=== PATIENT | male | born 1955 | race Caucasian/White ===

== ENCOUNTER 2017-09-22 | Observation (INO) | payer OTHER ==
[~2017-09-22] VITALS: Ht 188 cm; Wt 106.2 kg
[~2017-09-22] MED LIST: ASPI325 PO; ASPI81EC PO; ATEN100 PO; ATEN50 PO; ATOR10 PO; Aspirin EC81 MG PO; CHOLESTEROL MED; CRUTCH3 USE; CYCL10 PO; FURO40 PO; HYDACE5 PO; HYDCHL25 PO; LOSA25 PO; METH10 PO; Metoprolol Tart25 MG PO; NAPR500 PO; NAPR550 PO; NITR.4SL SL; OXYACE5T PO; OXYC10TA19 PO; OXYC1TAB11 PO; PRED20 PO; Percocet 5-3251 EACH PO; Prinivil5 MG PO; SENEXON-S TABL1 EACH PO; Silvadene20 GM TOP; TRAM50 PO; [UNRECOGNIZED DRUG - REMARK]
[2017-09-22 01:11] LABS: BASOPHILS ABSOLUTE AUTO 0.02 K/mm3 (0.00-0.23); BASOPHILS PERCENT AUTO 0 % (0-2); EOSINOPHILS ABSOLUTE AUTO 0.01 K/mm3 (0.00-0.68); EOSINOPHILS PERCENT AUTO 0 % (0-6); Hematocrit 38.2 % (37.0-53.0); Hemoglobin 13.2 g/dL (13.5-17.5); IMMATURE GRAN ABSOLUTE AUTO 0.02 K/mm3 (0.00-0.10); IMMATURE GRAN PERCENT AUTO 0 % (0-1); LYMPHOCYTES ABSOLUTE AUTO 1.71 K/mm3 (0.84-5.20); LYMPHOCYTES PERCENT AUTO 19 % (21-46); MONOCYTES ABSOLUTE AUTO 0.53 K/mm3 (0.16-1.47); MONOCYTES PERCENT AUTO 6 % (4-13); Mean Corpuscular HGB 31.6 pg (26.0-34.0); Mean Corpuscular HGB Conc 34.6 g/dL (31.5-36.5); Mean Corpuscular Volume 91 fL (80-100); Mean Platelet Volume 10.2 fL (9.1-12.4); NEUTROPHILS ABSOLUTE AUTO 6.76 K/mm3 (1.96-9.15); NEUTROPHILS PERCENT AUTO 75 % (41-73); Platelet Count 121 K/mm3 (150-400); RDW Coefficient Variation 11.8 % (11.7-14.2); RDW Standard Deviation 39.8 fL (35.1-46.3); Red Blood Cell Count 4.18 M/mm3 (4.30-5.90); White Blood Cell Count 9.05 K/mm3 (4.00-11.30)
[2017-09-22 01:30] LABS: Alanine Aminotransfer (ALT/SGP 49 U/L (12-78); Albumin, Blood 3.5 g/dL (3.4-5.0); Albumin/Globulin Ratio 0.9 (0.8-1.8); Alk Phos 121 U/L (50-136); Anion Gap 8 mmol/L (6-16); Aspartate Aminotrans (AST/SGOT 36 U/L (12-37); Bilirubin, Total 0.5 mg/dL (0.1-1.0); Blood Urea Nitrogen 18 mg/dL (8-24); Bun/Creatinine Ratio 28.7 (12.0-20.0); CO2, Blood 23 mmol/L (21-32); Calcium, Blood 8.2 mg/dL (8.5-10.1); Chloride, Blood 111 mmol/L (98-108); Creatinine, Blood 0.63 mg/dL (0.60-1.20); Globulin, Blood 3.9 g/dL (2.2-4.0); Glomerular Filtration Rate >60 (60-); Glucose, Blood 126 mg/dL (70-99); Potassium, Blood 3.7 mmol/L (3.5-5.5); Sodium, Blood 142 mmol/L (136-145); Total Protein, Blood 7.4 g/dL (6.4-8.2); Troponin I <0.015 ng/mL (0.000-0.040)
[2017-09-22 10:47] LABS: Troponin I <0.015 ng/mL (0.000-0.040)
[2017-09-22 10:48] LABS: CPK Creatine Kinase 65 U/L (39-308)
[2017-09-22 17:06] LABS: Hematocrit 40.4 % (37.0-53.0); Hemoglobin 14.1 g/dL (13.5-17.5); Mean Corpuscular HGB 31.9 pg (26.0-34.0); Mean Corpuscular HGB Conc 34.9 g/dL (31.5-36.5); Mean Corpuscular Volume 91 fL (80-100); Mean Platelet Volume 10.5 fL (9.1-12.4); Platelet Count 105 K/mm3 (150-400); RDW Coefficient Variation 11.8 % (11.7-14.2); RDW Standard Deviation 39.8 fL (35.1-46.3); Red Blood Cell Count 4.42 M/mm3 (4.30-5.90); White Blood Cell Count 7.89 K/mm3 (4.00-11.30)
[2017-09-22 18:03] LABS: Alanine Aminotransfer (ALT/SGP 48 U/L (12-78); Albumin, Blood 3.5 g/dL (3.4-5.0); Albumin/Globulin Ratio 0.9 (0.8-1.8); Alk Phos 127 U/L (50-136); Anion Gap 9 mmol/L (6-16); Aspartate Aminotrans (AST/SGOT 39 U/L (12-37); Bilirubin, Total 0.5 mg/dL (0.1-1.0); Blood Urea Nitrogen 19 mg/dL (8-24); Bun/Creatinine Ratio 25.8 (12.0-20.0); CO2, Blood 26 mmol/L (21-32); Calcium, Blood 8.5 mg/dL (8.5-10.1); Chloride, Blood 107 mmol/L (98-108); Creatinine, Blood 0.74 mg/dL (0.60-1.20); Globulin, Blood 3.7 g/dL (2.2-4.0); Glomerular Filtration Rate >60 (60-); Glucose, Blood 113 mg/dL (70-99); Potassium, Blood 3.5 mmol/L (3.5-5.5); Sodium, Blood 142 mmol/L (136-145); Total Protein, Blood 7.2 g/dL (6.4-8.2)
[2017-09-22 18:31] LABS: CPK Creatine Kinase 64 U/L (39-308); Troponin I <0.015 ng/mL (0.000-0.040)
[2017-09-23] MEDS ORDERED: ATOR40TA PO (15:56)
[2017-09-23] MEDS ORDERED: ACET325 PO (15:59)
[2017-09-23] MEDS ORDERED: LIDOCAINE1 EACH TOP (16:01)
== END 2017-09-23 16:29 | disposition home or self-care (01) ==
LOC: ER → MEDS 00:01 → ENPENDDIS 09-23 15:30 → MEDS 09-23 16:29
PROVIDERS: Emergency Medicine; Internal Medicine
DX: R07.89 Other chest pain (principal); I10 Essential (primary) hypertension; I25.10 Atherosclerotic heart disease of native coronary artery without angina pectoris; F11.20 Opioid dependence, uncomplicated; Z95.1 Presence of aortocoronary bypass graft; Z88.8 Allergy status to other drugs, medicaments and biological substances; Z79.82 Long term (current) use of aspirin; Z79.899 Other long term (current) drug therapy
CPT/HCPCS: 36415; 71046; 78452; 80053; 82550; 83880; 84484; 85025; 85027; 93005; 93010; 93017; 96372; 96374; 96375; 96376; 99285-25; A9500; G0378; J0706; J1650; J1885; J2405; J2550; J2785; J3010

== ENCOUNTER 2018-03-12 08:38 | Day surgery (SDC) | payer OTHER ==
[~2018-03-12 08:38] MED LIST changes: +ACET325 PO; +ATOR40TA PO; +LIDOCAINE1 EACH TOP
== END 2018-03-12 22:38 | disposition home or self-care (01) ==
LOC: US 08:38
DX: B18.2 Chronic viral hepatitis C (principal)
CPT/HCPCS: 47000; 76942; 88307; 88313

== ENCOUNTER 2018-08-22 06:40 | Day surgery (SDC) | payer OTHER ==
[~2018-08-22] VITALS: Ht 188 cm; Wt 113.6 kg
[~2018-08-22 06:40] MED LIST changes: +AMLO10 PO; +ATOR80 PO
--- NOTE | 2018-08-22 07:23 | NUR ---
08/22/18 0723 Sofi Lee V PT RESTING IN BED, SIDE RAILS IN PLACE, CALL LIGHT WITHIN RAECH, VSS. PT TEACHING COMPLETED. PT DENIES DISCOMFORT AND QUESTIONS, REPORTS FOR PAIN IN R HAND.
--- NOTE | 2018-08-22 08:35 | NUR ---
08/22/18 0835 Sofi Lee V REPORT GIVEN TO [facility]. [facility].
== END 2018-08-22 09:24 | disposition home or self-care (01) ==
LOC: ORSCSDS 06:40
PROVIDERS: Orthopaedic Surgery
PROC: 01N50ZZ Release Median Nerve, Open Approach (ICD-10-PCS; principal; 2018-08-22 08:00)
DX: G56.01 Carpal tunnel syndrome, right upper limb (principal); I10 Essential (primary) hypertension; I25.10 Atherosclerotic heart disease of native coronary artery without angina pectoris; I25.2 Old myocardial infarction; G47.33 Obstructive sleep apnea (adult) (pediatric); E66.9 Obesity, unspecified; Z68.32 Body mass index [BMI] 32.0-32.9, adult; Z87.891 Personal history of nicotine dependence; Z79.82 Long term (current) use of aspirin; Z79.899 Other long term (current) drug therapy
CPT/HCPCS: J2250; J2704; J3010; J7120

== ENCOUNTER 2019-01-07 06:31 | Day surgery (SDC) | payer OTHER ==
[~2019-01-07] VITALS: Ht 188 cm; Wt 114.3 kg
[~2019-01-07 06:31] MED LIST changes: +ASPI325EC PO; +Amlodipine Besy10 MG PO; +LOSARTAN POTAS100 MG PO; +Lipitor80 MG PO; +Lopressor 25 mg25 MG PO
== END 2019-01-07 08:45 | disposition home or self-care (01) ==
LOC: ORSCSDS 06:31
PROVIDERS: Orthopaedic Surgery
PROC: 01N50ZZ Release Median Nerve, Open Approach (ICD-10-PCS; principal; 2019-01-07 07:30)
DX: G56.02 Carpal tunnel syndrome, left upper limb (principal); I10 Essential (primary) hypertension; I25.2 Old myocardial infarction; B19.20 Unspecified viral hepatitis C without hepatic coma; E66.9 Obesity, unspecified; Z68.32 Body mass index [BMI] 32.0-32.9, adult; Z79.82 Long term (current) use of aspirin; Z79.899 Other long term (current) drug therapy
CPT/HCPCS: J1100; J2250; J2370; J2405; J2704; J3010; J7120

== ENCOUNTER 2019-04-14 07:15 | Day surgery (SDC) | payer OTHER ==
[~2019-04-14] VITALS: Ht 188 cm; Wt 109.0 kg
[~2019-04-14 07:15] MED LIST changes: +CHLO25B PO; +CLOP75 PO; +POTA10T PO; +RANOLAZINE ER500 M2 PO
--- NOTE | 2019-04-14 16:57 | NUR ---
PT IV DC'D INTACT, PT CHOOSED TO DC BY AMBULATING OUT WITH DAUGHTER IN LAW. R GROIN SITE STABLE, PT AMB TO BTR OK AND DRESSED. DC INSTRUCTIONS GIVEN
== END 2019-04-14 16:57 | disposition home or self-care (01) ==
LOC: MHTC 07:15
PROC: B202YZZ Plain Radiography of Single Coronary Artery Bypass Graft using Other Contrast (ICD-10-PCS; principal; 2019-04-14)
PROC: B205YZZ Plain Radiography of Left Heart using Other Contrast (ICD-10-PCS; principal; 2019-04-14)
PROC: B201YZZ Plain Radiography of Multiple Coronary Arteries using Other Contrast (ICD-10-PCS; principal; 2019-04-14)
PROC: 4A023N7 Measurement of Cardiac Sampling and Pressure, Left Heart, Percutaneous Approach (ICD-10-PCS; principal; 2019-04-14)
DX: I25.719 Atherosclerosis of autologous vein coronary artery bypass graft(s) with unspecified angina pectoris (principal); I25.119 Atherosclerotic heart disease of native coronary artery with unspecified angina pectoris; E78.5 Hyperlipidemia, unspecified; I10 Essential (primary) hypertension; I25.2 Old myocardial infarction; E66.3 Overweight; Z88.5 Allergy status to narcotic agent; Z68.32 Body mass index [BMI] 32.0-32.9, adult; Z86.19 Personal history of other infectious and parasitic diseases; Z79.82 Long term (current) use of aspirin; Z79.899 Other long term (current) drug therapy
CPT/HCPCS: 86850; 86900; 86901; 93459; 99152; 99153; C1769; C1894; J1644; J2250; J3010; J7030; Q9967

== ENCOUNTER 2019-06-12 20:30 | Observation (INO) | payer OTHER ==
[~2019-06-12] VITALS: Ht 190.5 cm; Wt 107.3 kg
[2019-06-12 21:01] LABS: BASOPHILS ABSOLUTE AUTO 0.05 K/mm3 (0.00-0.23); BASOPHILS PERCENT AUTO 0 % (0-2); EOSINOPHILS ABSOLUTE AUTO 0.12 K/mm3 (0.00-0.68); EOSINOPHILS PERCENT AUTO 1 % (0-6); Hematocrit 41.2 % (37.0-53.0); Hemoglobin 14.3 g/dL (13.5-17.5); IMMATURE GRAN ABSOLUTE AUTO 0.06 K/mm3 (0.00-0.10); IMMATURE GRAN PERCENT AUTO 1 % (0-1); LYMPHOCYTES ABSOLUTE AUTO 4.04 K/mm3 (0.84-5.20); LYMPHOCYTES PERCENT AUTO 34 % (21-46); MONOCYTES ABSOLUTE AUTO 0.86 K/mm3 (0.16-1.47); MONOCYTES PERCENT AUTO 7 % (4-13); Mean Corpuscular HGB 31.4 pg (26.0-34.0); Mean Corpuscular HGB Conc 34.7 g/dL (31.5-36.5); Mean Corpuscular Volume 91 fL (80-100); Mean Platelet Volume 10.3 fL (9.1-12.4); NEUTROPHILS ABSOLUTE AUTO 6.87 K/mm3 (1.96-9.15); NEUTROPHILS PERCENT AUTO 57 % (41-73); Platelet Count 203 K/mm3 (150-400); RDW Coefficient Variation 11.9 % (11.7-14.2); RDW Standard Deviation 39.9 fL (35.1-46.3); Red Blood Cell Count 4.55 M/mm3 (4.30-5.90)
[2019-06-12 21:25] LABS: Alanine Aminotransfer (ALT/SGP 22 U/L (12-78); Albumin, Blood 4.2 g/dL (3.4-5.0); Alk Phos 106 U/L (50-136); Anion Gap 4 mmol/L (6-16); Aspartate Aminotrans (AST/SGOT 23 U/L (12-37); Bilirubin, Total 0.5 mg/dL (0.1-1.0); Blood Urea Nitrogen 16 mg/dL (8-24); CO2, Blood 28 mmol/L (21-32); Chloride, Blood 105 mmol/L (98-108); Creatinine, Blood 0.84 mg/dL (0.60-1.20); Globulin, Blood 4.3 g/dL (2.2-4.0); Glomerular Filtration Rate >60 (60-); Glucose, Blood 99 mg/dL (70-99); Potassium, Blood 4.3 mmol/L (3.5-5.5); Sodium, Blood 137 mmol/L (136-145); Total Protein, Blood 8.5 g/dL (6.4-8.2); Troponin I <0.015 ng/mL (0.000-0.040)
[2019-06-13 02:15] LABS: International Normalized Ratio 1.05; Prothrombin Time Results 11.2 Sec (9.7-11.5)
[2019-06-13 04:29] LABS: Hematocrit 37.9 % (37.0-53.0); Hemoglobin 13.1 g/dL (13.5-17.5); Mean Corpuscular HGB 31.3 pg (26.0-34.0); Mean Corpuscular HGB Conc 34.6 g/dL (31.5-36.5); Mean Corpuscular Volume 91 fL (80-100); Mean Platelet Volume 9.9 fL (9.1-12.4); Platelet Count 163 K/mm3 (150-400); RDW Coefficient Variation 11.9 % (11.7-14.2); RDW Standard Deviation 39.6 fL (35.1-46.3); Red Blood Cell Count 4.18 M/mm3 (4.30-5.90); White Blood Cell Count 12.94 K/mm3 (4.00-11.30)
[2019-06-13 04:53] LABS: Alanine Aminotransfer (ALT/SGP 22 U/L (12-78); Albumin, Blood 3.6 g/dL (3.4-5.0); Alk Phos 94 U/L (50-136); Anion Gap 4 mmol/L (6-16); Aspartate Aminotrans (AST/SGOT 17 U/L (12-37); Bilirubin, Total 0.5 mg/dL (0.1-1.0); Blood Urea Nitrogen 16 mg/dL (8-24); Bun/Creatinine Ratio 18.4 (12.0-20.0); CO2, Blood 28 mmol/L (21-32); Calcium, Blood 8.6 mg/dL (8.5-10.1); Chloride, Blood 106 mmol/L (98-108); Creatinine, Blood 0.87 mg/dL (0.60-1.20); Globulin, Blood 3.7 g/dL (2.2-4.0); Glomerular Filtration Rate >60 (60-); Glucose, Blood 124 mg/dL (70-99); Potassium, Blood 3.3 mmol/L (3.5-5.5); Sodium, Blood 138 mmol/L (136-145); Total Protein, Blood 7.3 g/dL (6.4-8.2)
[2019-06-13 04:54] LABS: CPK Creatine Kinase 68 U/L (39-308); Troponin I <0.015 ng/mL (0.000-0.040)
--- NOTE | 2019-06-13 05:04 | NUR ---
PCU ADMIT / SHIFT SUMMARY PT BROUGHT TO PCU-10 FROM ER BY PAOLACARLOS @ APPROX 0130. PT A&O X4, ABLE TO STAND AND INDEPENDENTLY AMBULATE FROM ER [place] TO PCU BED. PT [place]. VSS. LUNG SOUNDS DIM T/O. SPO2 > 92% ON RA. MONITOR SHOWING SB, HR 40's-50's. PT C/O / HEADACHE & /10 CHEST PRESSURE. PT MEDICATED W/ PRN IV FENTANYL PER EMAR W/ LITTLE RELIEF. PT REPORTS HAVING CHEST PRESSURE SINCE 06/12/19 AM & HAVING TAKEN 3 NITRO AT HOME W/ NO RELIEF. HEPARIN GTT INITIATED, INFUSING PER ORDERS. NS GTT INFUSING PER ORDERS. PT AWAITING CHEST CT. WILL CONTINUE TO MONITOR AND PROVIDE CARE UNTIL REPORT OFF TO DAY SHIFT RN.
--- NOTE | 2019-06-13 08:02 | NUR ---
PT LAYING IN BED WAKES, EASILY, SEEMS A BIT FLAT, BUT HE WAS UP MOST OF THE NIGHT, A/OX3, COOPERATIVE WITH CARE, FOLLOWS COMMANDS WELL, STATES HE IS DOING OK, CARDIOLOGY CONSULT WAS CALLED THIS AM, Karsten.aZna STABLE, HEP GTT INFUSING, WILL CONTINUE TO MONITOR, CALL LIGHT IN REACH.
[2019-06-13 12:45] LABS: CPK Creatine Kinase 64 U/L (39-308); Troponin I <0.015 ng/mL (0.000-0.040)
--- NOTE | 2019-06-13 15:15 | NUR ---
pt is transfering to [facility], report was given to rose marie lance, pt via via ambulance with hep gtt.
== END 2019-06-13 15:06 | disposition short-term general hospital (02) ==
LOC: ER 20:30 → PCU 20:31
PROVIDERS: Physician Assistant; ADMIT Internal Medicine
DX: I25.10 Atherosclerotic heart disease of native coronary artery without angina pectoris (principal); I10 Essential (primary) hypertension; F11.20 Opioid dependence, uncomplicated; Z95.1 Presence of aortocoronary bypass graft; Z79.82 Long term (current) use of aspirin; Z79.02 Long term (current) use of antithrombotics/antiplatelets; Z79.899 Other long term (current) drug therapy; Z88.5 Allergy status to narcotic agent
CPT/HCPCS: 36415; 71046; 71260; 80053; 82550; 84484; 85025; 85027; 85610; 85651; 85730; 90686; 93005; 93010; 96361; 96374; 96375; 99285-25; A9270-GY; G0008; G0378; J1644; J2270; J3010; J7030; Q9967

== ENCOUNTER → 2020-02-17 | Outpatient (CLI) | payer OTHER | END | disposition home or self-care (01) | LOC: PLD 12:18 → LAB SHORT 12:18 | DX: B35.1 Tinea unguium (principal) | CPT/HCPCS: 88305; 88312 ==

== ENCOUNTER 2021-09-21 21:37 | Observation (INO) | payer OTHER ==
[~2021-09-21] VITALS: Ht 188 cm; Wt 116.5 kg
[2021-09-21 22:26] LABS: BASOPHILS ABSOLUTE AUTO 0.04 K/mm3 (0.00-0.23); BASOPHILS PERCENT AUTO 0 % (0-2); EOSINOPHILS ABSOLUTE AUTO 0.04 K/mm3 (0.00-0.68); EOSINOPHILS PERCENT AUTO 0 % (0-6); Hematocrit 41.2 % (37.0-53.0); Hemoglobin 14.4 g/dL (13.5-17.5); IMMATURE GRAN ABSOLUTE AUTO 0.05 K/mm3 (0.00-0.10); IMMATURE GRAN PERCENT AUTO 0 % (0-1); LYMPHOCYTES ABSOLUTE AUTO 2.56 K/mm3 (0.84-5.20); LYMPHOCYTES PERCENT AUTO 20 % (21-46); MONOCYTES ABSOLUTE AUTO 0.74 K/mm3 (0.16-1.47); MONOCYTES PERCENT AUTO 6 % (4-13); Mean Corpuscular HGB 29.9 pg (26.0-34.0); Mean Corpuscular Volume 86 fL (80-100); Mean Platelet Volume 9.8 fL (9.1-12.4); NEUTROPHILS ABSOLUTE AUTO 9.26 K/mm3 (1.96-9.15); NEUTROPHILS PERCENT AUTO 73 % (41-73); Platelet Count 197 K/mm3 (150-400); RDW Coefficient Variation 12.1 % (11.7-14.2); RDW Standard Deviation 37.6 fL (35.1-46.3); Red Blood Cell Count 4.82 M/mm3 (4.30-5.90); White Blood Cell Count 12.69 K/mm3 (4.00-11.30)
[2021-09-21 22:39] LABS: International Normalized Ratio 1.05
[2021-09-21 22:44] LABS: Bilirubin, Total 0.4 mg/dL (0.1-1.0); Creatinine, Blood 0.78 mg/dL (0.60-1.20); Globulin, Blood 4.1 g/dL (2.2-4.0); Potassium, Blood 3.7 mmol/L (3.5-5.5); Total Protein, Blood 8.1 g/dL (6.4-8.2)
[2021-09-22 02:41] LABS: CHOL/HDL RATIO 4.4; Cholesterol 137 mg/dL (50-200); HDL Cholesterol 31 mg/dL (>39); LDL/HDL RATIO 2.1; Low Density Lipoprotein Chol 66 mg/dL (0-110); Triglycerides 199 mg/dL (30-160); Very Low Density Lipoprot Chol 39 mg/dL (6-32)
--- NOTE | 2021-09-22 04:52 | NUR ---
PT ADMITTED TO 333 FROM ER @ 0200 AM ON 09/22/21. PT AMBULATES INDEPENDENTLY FROM W/C TO BED. STEADY GAIT NOTED. REPORT RECEIVED FROM CHARGE NURSEAnne
--- NOTE | 2021-09-22 04:53 | NUR ---
A&OX4. HYPERTENSIVE & C/O C/P; NO SOB. PRN NYTRO SUB GIVEN TWICE. BP NORMALIZED AFTER 2 DOSES OF NYTRO. C/P UNRESOLVED. PRN MORPHINE IV GIVEN FOR C/P ORDERED. C/P RESOLVED. INDEPENDANT. IV TO L) FA & R) AC. VOIDS W/O DIFFICULTY. NO BM THIS SHIFT. CARDIAC DIET. TELE: NS @HR OF 56BPM. WILL CONTINUE TO MONITOR.
--- NOTE | 2021-09-22 05:07 | NUR ---
ON 09/22/2021 DR. MANJARREZ NOTIFIED OF PATIENT'S PERSISTENT C/P DESPITE 2 DOSES OF NYTRO AT 0245. FENTANYL ORDERED BY DR MANJARREZ. PT ALLERGIC TO DEMEROL. DEMEROL & FENTANYL IN SAME CLASS. DR MANJARREZ SAID TO CALL DR. POP. DR. POP ORDERED " GIVE MORPHINE 2-3MG EVERY 3 HOURS PRN FOR CHEST PAIN". ORDER ENTERED ORDERED AND MORPHINE GIVEN PER EMAR.
[2021-09-22 06:00] LABS: BASOPHILS ABSOLUTE AUTO 0.04 K/mm3 (0.00-0.23); BASOPHILS PERCENT AUTO 0 % (0-2); EOSINOPHILS ABSOLUTE AUTO 0.15 K/mm3 (0.00-0.68); EOSINOPHILS PERCENT AUTO 1 % (0-6); Hematocrit 40.1 % (37.0-53.0); Hemoglobin 13.6 g/dL (13.5-17.5); IMMATURE GRAN ABSOLUTE AUTO 0.03 K/mm3 (0.00-0.10); IMMATURE GRAN PERCENT AUTO 0 % (0-1); LYMPHOCYTES ABSOLUTE AUTO 3.72 K/mm3 (0.84-5.20); LYMPHOCYTES PERCENT AUTO 31 % (21-46); MONOCYTES ABSOLUTE AUTO 1.02 K/mm3 (0.16-1.47); MONOCYTES PERCENT AUTO 9 % (4-13); Mean Corpuscular HGB 29.4 pg (26.0-34.0); Mean Corpuscular HGB Conc 33.9 g/dL (31.5-36.5); Mean Corpuscular Volume 87 fL (80-100); Mean Platelet Volume 9.5 fL (9.1-12.4); NEUTROPHILS ABSOLUTE AUTO 7.03 K/mm3 (1.96-9.15); NEUTROPHILS PERCENT AUTO 59 % (41-73); Platelet Count 172 K/mm3 (150-400); RDW Coefficient Variation 12.2 % (11.7-14.2); RDW Standard Deviation 38.8 fL (35.1-46.3); Red Blood Cell Count 4.62 M/mm3 (4.30-5.90); White Blood Cell Count 11.99 K/mm3 (4.00-11.30)
[2021-09-22 06:20] LABS: Albumin, Blood 3.6 g/dL (3.4-5.0); Bilirubin, Total 0.5 mg/dL (0.1-1.0); Bun/Creatinine Ratio 25.3 (12.0-20.0); Calcium, Blood 8.8 mg/dL (8.5-10.1); Creatinine, Blood 0.75 mg/dL (0.60-1.20); Globulin, Blood 3.7 g/dL (2.2-4.0); Potassium, Blood 3.7 mmol/L (3.5-5.5); Total Protein, Blood 7.3 g/dL (6.4-8.2)
[2021-09-22] MEDS ORDERED: METH40 (16:41)
--- NOTE | 2021-09-22 17:16 | NUR ---
SHIFT SUMMARY PT ADMITTED FOR OBSERVATION AFTER EXPERIENCING CP LAST NIGHT. PT HAS HAD A WI IN THE PAST AND WAS UNABLE TO FIND HIS NITRO. PT REPORTS CONSTANT CP BUT DENIES NEED FOR PAIN MEDICATION. MEDICATED FOR CP ONCE THIS SHIFT. PT REQUESTING TO HAVE HIS METHADONE RESTARTED DUE TO BEGINNING TO EXPERIENCE WITHDRAWAL SYMPTOMS. TROP REMAINS NEGATIVE. ECHO DONE AND AWAITING RESULTS.
--- NOTE | 2021-09-23 04:14 | NUR ---
A&OX4. V/S WNL. INDEPENDANT. IV TO L)AC & R) AC. CARDIAC DIET. TELE: SR W/ BUNDLE BRANCH @ HR OF 65BPM. WAITING ON ECHO RESULTS. PRN MORPHINE GIVEN FOR CHEST PAIN AND PRN ZOFRAN GIVEN FOR NAUSEA. PT DENIED ANY SOB. WILL CONTINUE TO MONITOR.
--- NOTE | 2021-09-23 09:51 | NUR ---
RN NOTE PT C/O NAUSEA THIS AM, TOOK PO ZOFRAN THEN ACCEPTED METHADONE TABLETS BUT SAID THAT HE NORMALLY TAKES MEDS LATER INTHE MORNING AND WILL TAKE THEM AFTER A WHILE. C/O 06/02 LEFT CP, DENIES RADIATION, NO DIAPHURESIS. PT SAID THIS PAIN IS THE SAME HE HAS HAD FOR THE PAST DAY AND NIGHT. NPO EXCEPT WATER FOR STRESS TEST, PER JIAN IN NUC MED IT WILL BE DONE A 2 DAY STRESS TEST HE IS OVER THE WT LIMIT FOR A 1 DAY STRESS TEST.
--- NOTE | 2021-09-23 11:46 | NUR ---
RN NOTE PT AGREED/ABLE TO TAKE REST OF AM MEDS AT THIS TIME. C/O HEADACHE, DECLINED NEED FOR ANY MEDS FOR HEADACHE. BP ELEVATED, HAD JUST BEEN TO THE BATHROOM AND AM MEDS WERE LATE.
--- NOTE | 2021-09-23 16:44 | NUR ---
SHIFT SUMMARY MR BRAR IS ORIENTATED X4. C/O LEFT SIDED CHEST PAIN FOR MOST OF THE DAY THAT HE SAID IS THE SAME THE CP HE HAD ALL LAST NIGHT AND YESTERDAY. S/B DR TAVERA. STRESS TEST ORDERED, PART ONE DONE TODAY AND PART TWO TO BE DONE TOMORROW MORNING. C/O GENERAL NAUSEA - ZOFRAN GIVEN THIS AM, DECLINED A REPEAT DOSE THIS AFTERNOON. HE SAID HE GETS NAUSEA AT HOME AND USUALLY REST HELPS. HE HAS BEEN RESTING FOR MOST OF THE DAY INBETWEEN NUC MED TESTING. GIVEN A 1/2 SANDWICH AFTER NOON INJECTION PER NUC [facility] REQUEST AND PT SAID HE TOLERATED THAT. ON TELEMETRY - SR 70S WITH ST TO 108 BRIEFLY FROM [employer], NO ST CHANGES, NO PVCS. BED LOW, CALL LIGHT IN REACH.
--- NOTE | 2021-09-24 05:29 | NUR ---
SHIFT SUMMARY AOX4. VSS. TELE NSR c HR 72. REPORTED 8/10 L CHEST WALL PAIN, UNDER BREAST @SHIFT CHANGE LAST NIGHT, MEDICATED c 2MG IV MORPHINE WHICH DECREASED PAIN TO 3/10, PT STATES TOLERABLE PAIN LEVEL. PT REFUSES USING NITRO, BECAUSE IT GIVES HIM "HORRIBLE HEADACHES." PT HAS HAD CONSTANT 3/10 CP T/O NIGHT, STATES PAIN LEVEL SOMETIMES INCREASES TO 6/10 BUT HASNT SUSTAINED SINCE RECIEVING IV MORPHINE. REPORTS NAUSEA, POOR APPETITE, HAD 1 EPISODE EMESIS, MEDICATED 1X c PO ZOFRAN & NO FURTHER EMESIS THIS SHIFT. REPORTS DYSPNEA WORSE c CP & WITH MINIMAL ACTIVITY. SPO2 >90% ON RA. PLANNED TO HAVE 2ND PART STRESS TEST THIS AM. HAS BEEN NPO SINCE 0400. CALL LIGHT IN REACH, WILL MONITOR.
--- NOTE | 2021-09-24 09:57 | NUR ---
DR TAVERA CALLED TO INFORM THAT [facility] REPORTED [address] 130S, NOW BACK TO 70S. NO NEW ORDERS.
--- NOTE | 2021-09-24 11:23 | NUR ---
MR BRAR C/O NAUSEA THIS AM, CP 04/04 THIS MORNING. HE DECLINED ZOFRAN. PRE STRESS TEST HE VOMITED AND WAS GIVEN IV ZOFRAN BY PROCEDURAL RN. HE DOES NOT LIKE TO TAKE HIS AM MEDS AT 9AM, SAID HE NORMALLY TAKES THEM AROUND LUNCH TIME AND WILL LET ME KNOW WHEN HE'S READY TO TAKE THEM. HE HAS BEEN DOWN TO NUCLEAR MED FOR 2ND PART OF THE TEST. LIPASE LAB ORDERED, DR TAVERA INFORMED AND SAID HE WILL LOOK OUT FOR RESULTS.
--- NOTE | 2021-09-24 14:33 | NUR ---
I TALKED WITH DR TAVERA AND TOLD HIM THAT PT HAS REFUSED ALL HIS MEDICATIONS SO FAR TODAY. PT KEEPS TELLING ME THAT HE SHOULD BE ABLE TO TAKE THEM SOON, THAT HE FEELS LIKE HIS STOMACH IS SETTLING DOWN. OFFERED REGLAN BUT PT DECLINES. HE SAID HIS CHEST PAIN IS MILD, BETTER THAN IT HAS BEEN. PT KEEPS TELLING ME THAT HE WILL TAKE HIS MEDS, JUST NOT YET.
--- NOTE | 2021-09-24 19:29 | NUR ---
SHIFT SUMMARY MR BRAR HAD AN IMPROVEMENT IN HIS CHEST PAIN TODAY, SAID IT WAS MOSTLY DULL L SIDED CP AROUND 04/04. HE HAD A LOT OF NAUSEA AND ONE EPISODE OF EMESIS JUST PRIOR TO STRESS TEST INJECTION, WHICH WAS COVERED BY IV ZOFRAN BY PROCEDURAL RN. HE FELT LIKE HIS STOMACH DIDN'T SETTLE WELL ALL DAY, HE DIDN'T TAKE HIS AM MEDS, DID KEEP DOWN IMDUR. REGLAN DIDN'T HELP WITH NAUSEA AND HE SAID PO ZOFRAN DOESN'T HELP. ON TELE WITH SR AND RUNS OF ST. NO BM FOR 4 DAYS PT KEPT DOWN A DOWN OF SOUP FOR LUNCH AND SOUP AND FRUIT FOR SUPPER WELL SIPPING ON FLUIDS. CARE DISCUSSED WITH DR TAVERA THROUGHOUT THE DAY. PT JUST FEELING "NOT WELL" ALL DAY. BED LOW, CALL LIGHT IN REACH.
[2021-09-25 06:13] LABS: Bun/Creatinine Ratio 27.1 (12.0-20.0); Calcium, Blood 9.2 mg/dL (8.5-10.1); Creatinine, Blood 0.96 mg/dL (0.60-1.20); Magnesium, Blood 2.3 mg/dL (1.6-2.4); Potassium, Blood 3.5 mmol/L (3.5-5.5)
--- NOTE | 2021-09-25 06:33 | NUR ---
SHIFT SUMMARY AOX4. VSS. TELE NSR HR 94. REPORTED HAVING AN APPETITE & WAS ABLE TO KEEP DOWN A FULL SANDWHICH W/O EMESIS OR NAUSEA. REPORTED 3/10 L UPPER CHEST PAIN, STATES TOLERABLE & DENIES NEED FOR NITRO. PLAN TO POSSIBLY DC TODAY. ABLE TO MAKE NEEDS KNOWN. WILL MONITOR.
[2021-09-25] MEDS ORDERED: Isosorbide Mono30 MG PO (10:59)
--- NOTE | 2021-09-25 11:04 | NUR ---
PT REFUSED TO HAVE DISCHARGE PRESCRIPTIONS SENT TO LOCAL PHARMACY OPEN TODAY TO GET FILLED. PT EDUCATED ON NEED TO TAKE IMDUR DAILY TO PREVENT CP. PT VU. DESPITE EDUCATION PT CONTINUED TO REFUSE LOCAL FILL AND RE[facility]. FAXED REQUESTED.
--- NOTE | 2021-09-25 11:26 | NUR ---
DISCHARGE MR BRAR VERBALISED UNDERSTANDING OF WRITTEN AND VERBAL DISCHARGE INSTRUCTIONS. HE DID NOT HAVE ANY QUESTIONS. PIV REMOVED INTACT. HE STILL HAS L SIDED CP 2/10, WHICH HE SAID IS AN IMPROVEMENT. HE SAID THAT THE NAUSEA HAS SETTLED DOWN, NOT COMPLETELY GONE. WHEELCHAIR TO DISCHARGE HOME AT 1130.
== END 2021-09-25 11:31 | disposition home or self-care (01) ==
LOC: ER 21:37 → MEDS 21:38
PROVIDERS: Family Medicine; Internal Medicine; Student in an Organized Health Care Education/Training Program; ADMIT Internal Medicine
DX: R07.89 Other chest pain (principal); I25.10 Atherosclerotic heart disease of native coronary artery without angina pectoris; I25.2 Old myocardial infarction; E78.5 Hyperlipidemia, unspecified; R11.2 Nausea with vomiting, unspecified; F11.20 Opioid dependence, uncomplicated; I10 Essential (primary) hypertension; Z88.6 Allergy status to analgesic agent; Z87.891 Personal history of nicotine dependence; Z95.5 Presence of coronary angioplasty implant and graft; Z95.1 Presence of aortocoronary bypass graft
CPT/HCPCS: 36415; 71045; 78452; 80048; 80053; 80061; 83036; 83690; 83735; 83880; 84443; 84484; 85025; 85610; 93005; 93010; 93017; 93306; 94760; 96374; 96375; 96376; 99285-25; A9270; A9500; G0378; J0280; J2270; J2405; J2785

== ENCOUNTER 2022-11-30 09:40 | Day surgery (SDC) | payer OTHER ==
[2022-11-30] VITALS (21 sets, daily range): BP systolic 89–155; BP diastolic 53–102
[~2022-11-30] VITALS: Ht 182.9 cm; Wt 109.0 kg
[~2022-11-30 09:40] MED LIST changes: +Isosorbide Mono30 MG PO; +METH40
--- NOTE | 2022-11-30 11:44 | NUR ---
11/30/22 1144 Rosalia Hightower HISTORY, CHART, MEDICATIONS AND ALLERGIES REVIEWED BEFORE START OF PROCEDURE. PATIENT CONFIRMS NPO STATUS AND AGREES WITH SCHEDULED PROCEDURE. 3-LEAD EKG REVIEWED WITH PHYSICIAN PRIOR TO START OF PROCEDURE. MONITOR INTACT WITH CONTINUOUS PULSE OXIMETRY,CAPNOGRAPHY, 3-LEAD EKG, INTERMITTENT BP. SUPPLEMENTAL O2 TO BE TITRATED THROUGHOUT PROCEDURE TO MAINTAIN O2 SATURATION ABOVE 90%. PATIENT DETERMINED TO BE ASA APPROPRIATE FOR PROPOFOL SEDATION PRIOR TO START OF PROCEDURE BY
--- NOTE | 2022-11-30 12:10 | NUR ---
PT BACK TO DAY SURGERY. SLEEPY, BUT RESPONDS WELL AND ABLE TO MOVE SELF IN BED. PO FLUIDS GIVEN. PT DENIES PAIN.
--- NOTE | 2022-11-30 12:30 | NUR ---
PT TOLERATING PO FLUIDS WELL. DESIRES TO GO HOME. Patient up to Ambulate independently. Gait steady. Discharge instructions reviewed with patient. Patient verbalizes understanding. Copy given to patient to take home. Patient States Post-Procedure ride home has been arranged. Discharged via wheelchair to private car for ride home.
== END 2022-11-30 12:32 | disposition home or self-care (01) ==
LOC: ORSCMMR 09:40 → ORD 10:30 → ORSCMMR 12:32
PROVIDERS: Internal Medicine Gastroenterology
PROC: 0DBL8ZX Excision of Transverse Colon, Via Natural or Artificial Opening Endoscopic, Diagnostic (ICD-10-PCS; principal; 2022-11-30 10:30)
PROC: 0DBN8ZX Excision of Sigmoid Colon, Via Natural or Artificial Opening Endoscopic, Diagnostic (ICD-10-PCS; principal; 2022-11-30 10:30)
PROC: 0DBK8ZX Excision of Ascending Colon, Via Natural or Artificial Opening Endoscopic, Diagnostic (ICD-10-PCS; principal; 2022-11-30 10:30)
DX: K62.5 Hemorrhage of anus and rectum (principal); R19.5 Other fecal abnormalities; D12.5 Benign neoplasm of sigmoid colon; D12.2 Benign neoplasm of ascending colon; K63.5 Polyp of colon; K64.4 Residual hemorrhoidal skin tags; I25.10 Atherosclerotic heart disease of native coronary artery without angina pectoris; E11.9 Type 2 diabetes mellitus without complications; Z79.899 Other long term (current) drug therapy; Z79.82 Long term (current) use of aspirin; Z79.84 Long term (current) use of oral hypoglycemic drugs; Z79.02 Long term (current) use of antithrombotics/antiplatelets
CPT/HCPCS: 82947; 88305; J2704; J7120